=== PATIENT | male | born 1985 | race Caucasian/White ===

== ENCOUNTER → 2022-01-22 11:35 | Outpatient (CLI) | payer MEDICAID, SELFPAY ==
[2022-01-22 13:46] LABS: Basophils # 0.1 K/mm3 (0-0.2); Basophils % 0.8 % (0.1-2.0); Eosinophils # 0.1 K/mm3 (0.0-0.4); Eosinophils % 0.8 % (0.1-12.0); Hemoglobin 14.7 g/dL (14.1-18.0); Lymphocytes # 2.3 K/mm3 (0.7-4.5); Lymphocytes % 37.7 % (10-50); Mean Corpuscular HGB Conc 32.7 g/dL (31.8-35.4); Mean Corpuscular Hemoglobin 29.2 pg (27.0-31.2); Mean Corpuscular Volume 89.3 fl (80-94); Mean Platelet Volume 9.3 fl (7.4-10.4); Monocytes # 0.4 K/mm3 (0.1-1.0); Neutrophils # 3.3 K/mm3 (1.8-7.8); Neutrophils % 53.8 % (37.0-80.0); Platelet Count 274 K/mm3 (142-424); Red Blood Count 5.04 M/mm3 (4.60-6.20)
[2022-01-22 14:05] LABS: Alanine Aminotransferase 26 U/L (12-78); Albumin Level 4.8 g/dl (3.5-5.0); Alkaline Phosphatase 78 U/L (38-126); Aspartate Amino Transferase 26 U/L (17-59); Bilirubin,Total 0.3 mg/dl (0.2-1.3); Blood Urea Nitrogen 16 mg/dl (9-20); Calcium 9.7 mg/dl (8.4-10.2); Carbon Dioxide 27 mmol/L (22.0-30.0); Chloride 96 mmol/L (98-107); Chol/HDL Ratio 4.2 (1-3.5); Cholesterol 199 mg/dl (140-200); Estimated Glomerular Filt Rate 84 ml/min (>60); GFR (African American) 101 ML/MIN (>60); Globulin 2.4 g/dL (1.3-3.2); Glucose 88 mg/dl (74-100); HDL Cholesterol 47 mg/dl (40-60); Sodium 138 mmol/L (136-145); Total Protein,Serum 7.2 g/dl (6.3-8.2); Triglycerides 341 mg/dl (30-150); VLDL Cholesterol 68 mg/dL (0-40)
[2022-01-22 14:22] LABS: 25-OH Vitamin D, Total 38.2 ng/mL (30-100)
[2022-01-22 14:36] LABS: Thyroid Stimulating Hormone 0.56 uIU/mL (0.465-4.68)
== END ==
PROVIDERS: PCP Student in an Organized Health Care Education/Training Program; Visit Provider Student in an Organized Health Care Education/Training Program
DX: Z00.00 Encounter for general adult medical examination without abnormal findings (principal); E78.5 Hyperlipidemia, unspecified; E55.9 Vitamin D deficiency, unspecified; F41.9 Anxiety disorder, unspecified; Z72.0 Tobacco use; Z79.899 Other long term (current) drug therapy
CPT/HCPCS: 80053; 80061; 82306; 84443; 85025

== ENCOUNTER 2022-02-12 00:03 | Emergency (ER) | payer SELFPAY ==
[2022-02-12 00:04] VITALS: BP 113/76; PULSE 87; RESP 19; TEMP 36.9; O2SAT 98; BMI 26.6
[2022-02-12 00:16] VITALS: BMI 26.6
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
[2022-02-12 01:26] VITALS: BP 115/75; PULSE 81; RESP 17; TEMP 36.9; O2SAT 99
== END 2022-02-12 01:35 | disposition home or self-care (01) ==
PROVIDERS: Emergency Provider Emergency Medicine
DX: T23.201A Burn of second degree of right hand, unspecified site, initial encounter (principal); T59.811A Toxic effect of smoke, accidental (unintentional), initial encounter; F17.200 Nicotine dependence, unspecified, uncomplicated; Z79.899 Other long term (current) drug therapy; Z23 Encounter for immunization; Y92.012 Bathroom of single-family (private) house as the place of occurrence of the external cause
CPT/HCPCS: 71046; 90471; 90714; 99284

== ENCOUNTER → 2022-03-15 11:00 | Outpatient (CLI) | payer MEDICAID, SELFPAY | PROVIDERS: PCP Student in an Organized Health Care Education/Training Program; Visit Provider Student in an Organized Health Care Education/Training Program | DX: U07.1 COVID-19 (principal); R53.1 Weakness | CPT/HCPCS: C9803; U0003; U0005 ==

== ENCOUNTER → 2022-08-08 11:00 | Outpatient (CLI) | payer MEDICAID, SELFPAY | PROVIDERS: PCP Emergency Medicine; Visit Provider Emergency Medicine | DX: M54.50 Low back pain, unspecified (principal) | CPT/HCPCS: 87086 ==

== ENCOUNTER → 2022-08-22 13:42 | Outpatient (CLI) | payer MEDICAID, SELFPAY ==
[2022-08-24 11:57] LABS: Rapid Plasma Reagin Ab Titer Non Reactive (NonRea<1:1)
[2022-08-24 22:40] LABS: Neisseria gonorrhoeae, NAA Negative (Negative)
[2022-08-25 06:21] LABS: HIV Screen 4th Generation wRfx Non Reactive (Non Reactive)
== END ==
PROVIDERS: PCP Nurse Practitioner Family; Visit Provider Nurse Practitioner Family
DX: A64 Unspecified sexually transmitted disease (principal); Z11.4 Encounter for screening for human immunodeficiency virus [HIV]
CPT/HCPCS: 86593; 86695; 86703; 86790; 87491; 87591; G0432

== ENCOUNTER 2023-02-28 06:29 | Outpatient (CLI) | payer MEDICAID, SELFPAY ==
[2023-02-28 19:51] LABS: Basophils # 0.1 K/mm3 (0-0.2); Basophils % 0.8 % (0.1-2.0); Eosinophils # 0.1 K/mm3 (0.0-0.4); Eosinophils % 1.1 % (0.1-12.0); Hematocrit 45.9 % (42.0-52.0); Hemoglobin 15.7 g/dL (14.1-18.0); Lymphocytes # 2.2 K/mm3 (0.7-4.5); Lymphocytes % 33.2 % (10-50); Mean Corpuscular HGB Conc 34.2 g/dL (31.8-35.4); Mean Corpuscular Hemoglobin 29.9 pg (27.0-31.2); Mean Corpuscular Volume 87.5 fl (80-94); Mean Platelet Volume 9.5 fl (7.4-10.4); Monocytes # 0.5 K/mm3 (0.1-1.0); Monocytes % 7.8 % (1.7-9.3); Neutrophils # 3.8 K/mm3 (1.8-7.8); Neutrophils % 57.1 % (37.0-80.0); Platelet Count 267 K/mm3 (142-424); Red Blood Count 5.24 M/mm3 (4.60-6.20); Red Cell Distribution Width 13.8 % (11.5-17.5); White Blood Count 6.6 K/mm3 (4.8-10.8)
[2023-02-28 20:06] LABS: Alanine Aminotransferase 64 U/L (12-78); Albumin Level 4.4 g/dl (3.5-5.0); Albumin/Globulin Ratio 1.6 (1.1-1.8); Alkaline Phosphatase 73 U/L (38-126); Anion Gap 10.5 mEq/L (5-15); Aspartate Amino Transferase 39 U/L (17-59); Bilirubin,Total 0.3 mg/dl (0.2-1.3); Blood Urea Nitrogen 12 mg/dl (9-20); Calcium 9.1 mg/dl (8.4-10.2); Carbon Dioxide 27 mmol/L (22.0-30.0); Chloride 103 mmol/L (98-107); Chol/HDL Ratio 7.4 (1-3.5); Cholesterol 268 mg/dl (140-200); Estimated Glomerular Filt Rate 83 ml/min (>60); GFR (African American) 101 ML/MIN (>60); Globulin 2.7 g/dL (1.3-3.2); Glucose 97 mg/dl (74-100); HDL Cholesterol 36 mg/dl (40-60); Potassium 4.5 mmoL/L (3.5-5.1); Sodium 136 mmol/L (136-145); Total Protein,Serum 7.1 g/dl (6.3-8.2)
[2023-02-28 20:26] LABS: Direct LDL Cholesterol 122.88 mg/dL (100-129)
[2023-02-28 20:38] LABS: Amphetamine/Metha Screen,Urine Negative ng/ml (<1000); Barbiturates Screen,Urine Negative ng/ml (<200); Benzodiazepines Screen,Urine Negative ng/ml (<200); Cannabinoid Screen,Urine Positive ng/ml (<50); Cocaine Screen,Urine Negative ng/ml (<300); Methadone Screen,Urine Negative ng/ml (<300); Opiate Screen,Urine Negative ng/ml (<300); Phencyclidine Screen,Urine Negative ng/ml (<25)
[2023-02-28 20:44] LABS: Triglycerides 776 mg/dl (30-150)
[2023-03-09 19:09] LABS: Alprazolam Negative (Cutoff=100); Benzodiazepines Positive ng/mL (Cutoff=100); Clonazepam Positive (.); Clonazepam Confirm 179 ng/mL (Cutoff=100); Flurazepam Negative (Cutoff=100); Lorazepam Negative (Cutoff=100); Midazolam Negative (Cutoff=100); Temazepam Negative (Cutoff=100); Triazolam Negative (Cutoff=100)
== END 2023-02-28 23:59 ==
PROVIDERS: PCP Nurse Practitioner Family; Visit Provider Nurse Practitioner Family
DX: R06.02 Shortness of breath (principal); R07.9 Chest pain, unspecified; R53.83 Other fatigue; F41.9 Anxiety disorder, unspecified; E55.9 Vitamin D deficiency, unspecified; Z79.899 Other long term (current) drug therapy
CPT/HCPCS: 80053; 80061; 80307; 80346; 82306; 84443; 85025

== ENCOUNTER 2023-03-04 10:21 | Outpatient (CLI) | payer MEDICAID, SELFPAY | END 2023-03-04 23:59 | LOC: LAB.DROPOF 03-08 10:21 | PROVIDERS: PCP Nurse Practitioner Family; Visit Provider Nurse Practitioner Family | DX: F41.9 Anxiety disorder, unspecified (principal); Z79.899 Other long term (current) drug therapy | CPT/HCPCS: 80346 ==

== ENCOUNTER 2023-03-22 07:32 | Outpatient (CLI) | payer MEDICAID, SELFPAY ==
--- NOTE | 2023-03-22 | CA_ITS ---
APPROVED REPORT Exam: Pharmacologic Technologist: Mariana Kim, Ht: 5 ft 9 in Wt: 194 lbs BSA: 2.04 m2 HR: 65 bpm BP: 124/72 mmHg Rhythm: NSR Medical History Medical History: Hyperlipidemia Medications: Lexapro,,,,, Atorvastatin,,,,, FeNOfibrate,,,,, Vraylar,,,,, KloNIPIN,,,,, Allergies: No known drug allergies Cardiac Risk Factors: Hyperlipidemia Stress Test Details Test: LEXISCAN HR Resting HR: 62 bpm Max Heart Rate (APMHR): 181 bpm Max HR Achieved: 88 bpm Target HR (85% APMHR): 154 bpm % of APMHR: 49 Recovery HR: 78 bpm BP Resting BP: 124/72 mmHg Max BP: 145/80 mmHg Recovery BP: 119.0/81.0 mmHg ECG Resting ECG: NSR Stress ECG: No significant ST changes Arrhythmia: None Clinical Exercise duration: 04:03 min Highest Stage Achieved: Stress ECG Conclusion PT HAD MILD SOA AND HEAD DISCOMFORT MILD CHEST TIGHTNESS NO SIGNIFICANT CHANGES UNREMARKABLE LEXISCAN STRESS MYOVIEW IMAGES REPORTED SEPARATELY Test Summary REST 02:58 . . 62 . 124/ 72 . . Stage 1 01:00 . . 85 . . . . Stage 2 01:00 . . 83 . 145/ 80 . . Stage 3 01:00 . . 75 . 122/ 73 . . Stage 4 01:00 . . 71 . 126/ 80 . . Stage 4 01:03 . . 71 . 126/ 80 . Stop exercise at 04:03 RECOVERY 01:00 . . 75 . . . . RECOVERY 02:00 . . 68 . 124/ 77 . . RECOVERY 03:00 . . 78 . 119/ 81 . . RECOVERY 03:17 . . 72 . 119/ 81 . . Electronically signed by : Paz Tobar MD 03/25/2023 11:34:59
--- NOTE | 2023-03-22 07:33 | NM_ITS ---
APPROVED REPORT Exam: Nuclear Stress Test Indication: chest pain..fatigue Patient Location: Outpatient Stress Tech: Mariana Kim [place] Tech:ADELINE Hernandez RT(R)(N) Ht: 5 ft 9 in Wt: 196 lbs HR: 62 bpm BP: 124/72 mmHg BSA: 2.05 m2 Rhythm: NSR TID: 1.19 BMI: 28.9 History: chest pain..fatigue Procedure: Patient received 0.4 mg of intravenous Lexiscan, resting heart rate 62 bpm, resting blood pressure 124/72 mmHg, with Lexiscan maximum heart rate achieved was 88 bpm which is 85 % of the maximum predicted heart rate and blood pressure was 145/80 mmHg. With Lexiscan, patient denied any complaint of chest pain. Cardiac Stress and Resting SPECT Images: Cardiac Stress and Resting SPECT images were obtained using technetium 99m Myoview 30.5 mCi stress and 9.90 mCi at rest. Technically difficult study due to significant radiotracer uptake in the GI tract, with reduced counts in the cardiac myocardial wall. This may affect the diagnostic interpretation of the study findings. There is no definite evidence of fixed or reversible perfusion defects. Gated imaging demonstrates mild reduction in global and regional LV systolic function. LVEF is calculated at 41%. Conclusion: Technically difficult study due to significant radiotracer uptake in the GI tract, with reduced counts in the cardiac myocardial wall. This may affect the diagnostic interpretation of the study findings. There is no definite evidence of fixed or reversible perfusion defects. Gated imaging demonstrates mild reduction in global and regional LV systolic function. LVEF is calculated at 41%. In the setting of reduced cardiac radiotracer uptake, this may be considered a nondiagnostic stress test. Evaluation for ischemia with alternative modalities is recommended, if clinically indicated. Electronically signed by : Paz Tobar MD 03/25/2023 11:37:51
[2023-03-22] MEDS: ISOTOPE MYOVIEW (PER STUDY) 1 DOSE IV (09:19)
[2023-03-22] MEDS: REGADENOSON 0.4MG/5ML SYRINGE 0.400000000000000022 MG IV (09:19)
[2023-03-22] MEDS: SODIUM CHLORIDE 0.9% 10ML SYR (RAD ONLY) 10 ML IV ×2 (09:19→09:20)
--- NOTE | 2023-03-22 09:24 | CA_ITS ---
APPROVED REPORT EXAM: Comprehensive 2D, Doppler, and color-flow Echocardiogram [employer]: Ericka Mejia, RCS, RVS Ht: 5 ft 9 in Wt: 194lbs BSA: 2.04 BP: 114/77 mmHg Indications: CP,HTN, Fatigue, Smoker 2D Dimensions Left Atrium 2.84 cm M: 3.0 - 4.0 LA Volume 41.20 mL LA Volume Index [id number] mL/m2 (M/F) 16-34 M-Mode Dimensions RVDd 3.22 cm (0.9-2.6) LA Diam 3.23 cm (1.9-4.0) LVDd 4.90 cm (3.5-5.7) LVDs 3.68 cm (3.5-5.7) IVSd 0.89 cm (0.6-1.1) PWd 0.89 cm (0.6-1.1) EF (Teich) 49.10% EPSs 1.18 cm FS 24.90% EDV (Teich) 112.80 mL TAPSE 1.86 (<1.7) ESV (Teich) 57.40 mL LV Diastology E Decel Time 200 (160-240 msec) E/A Ratio 1.44 MED A' 12.80 cm/s LAT A' 6.70 cm/s Aortic Valve NILDA Index 1.21 cm2/m2 AoV Peak Sher. 114.0 (50-130 cm/s) AO Peak GR. 5.20 mmHg AO Mean GR. 2.60 (<5 mmHg) AO VTI 23.8 (18-25 cm) NILDA (VTI) 2.52 (2.5-4.5 cm2) Mitral Valve MV A Velocity 46.0 (40-130 cm/s) E/A Ratio 1.44 Tricuspid Valve TR P. Velocity 182.00 cm/s RAP Estimate 10.00 mmHg RVSP 23.20 mmHg Left Ventricle The left ventricle is normal size. The left ventricular systolic function is low-normal. There is normal left ventricular wall thickness. There is borderline global hypokinesis present. The left ventricular diastolic function is normal. LVEF is 50%. Right Ventricle The right ventricle is normal size. The right ventricular systolic function is normal. Atria The left atrium size is normal. The right atrium size is normal. There is no Doppler evidence of interatrial shunt. Aortic Valve The aortic valve opens well. There is no aortic valvular stenosis. No aortic regurgitation is present. Mitral Valve The mitral valve is normal in structure. No evidence of mitral valve stenosis. There is no mitral valve regurgitation noted. Tricuspid Valve The tricuspid valve leaflets are thin and pliable. Trace tricuspid regurgitation. There is insufficient TR jet to estimate RVSP. Pulmonic Valve The pulmonary valve is normal in structure. Trace pulmonic regurgitation. Great Vessels The aortic root is normal in size. The ascending aorta is not well visualized. IVC is normal in size and collapses >50% with inspiration. Pericardium There is no pericardial effusion. Other Information Study Quality: Adequate Conclusion Low-normal LV systolic function (LVEF 50%). No significant valvular stenosis or regurgitation. In the setting of borderline global hypokinesis and low-normal LVEF=50%, further evaluation to rule out cardiomyopathy is recommended with cardiac MRI (cardiomyopathy protocol). Electronically signed by : Paz Tobar MD 03/26/2023 17:23:32
== END 2023-03-22 23:59 ==
LOC: RAD 07:33
PROVIDERS: PCP Nurse Practitioner Family; Visit Provider Physician Assistant
DX: R06.02 Shortness of breath (principal); R07.9 Chest pain, unspecified; R53.83 Other fatigue; Z82.49 Family history of ischemic heart disease and other diseases of the circulatory system
CPT/HCPCS: 78452; 93017; 93018; 93306; A9502; J2785

== ENCOUNTER 2023-04-09 07:35 | Outpatient (CLI) | payer MEDICAID, SELFPAY ==
--- NOTE | 2023-04-09 07:35 | CT_ITS ---
APPROVED REPORT Hospice Clinical Supervisor: CLINICAL INDICATION Chest Pain TECHNIQUE Image Acquisition: A 128 slice MDCT scanner ([employer] View) was used for data acquisition. A noncontrast coronary calcium scan was performed. A CT attenuation threshold of 130 Hounsfield units (HU) was used for the detection of calcium in contiguous voxels of 1 sq mm in area to be counted as individual lesions. Bolus tracking in the ascending aorta with a threshold of 180 HU was performed. Immediately afterwards, ECG synchronized cardiac CT was then performed from the cardiac base to apex using retrospective gating with ECG tube current modulation. A total of 85 mL of Isovue 370 mg/mL contrast medium was administered at 5 mL/sec followed by a saline flush using a biphasic injection protocol. A tube voltage of 120 KVp was used. The patient received the following medications prior to the cardiac CT. 75 mg of oral metoprolol 15 mg of oral ivabradine 0.8 mg of sublingual nitroglycerin The average heart rate at the time of acquisition was 51 bpm and regular. Image Reconstruction Transaxial images were reconstructed at 0.67 mm slide thickness. Data was reviewed interactively on an advanced workstation capable of 2 and 3-dimensional displays in all conventional reconstruction formats, including multiplanar reformations, maximum intensity projections, curved multiplanar reformations, and volume rendered reconstructions. When applicable, selected routine images describing the relevant coronary anatomy and pathology were saved and sent to PACS. Complications None Technical Quality Overall image quality was good. Coronary artery opacification was adequate. Total DLP (Dose-Length Product) is 1410.8 mGy-cm. The reported value represents the total of one or more individual components during the CT acquisition of this date and at this time, and as such, the same value may appear in more than one CT report depending on the interpreting/reporting physicians. COMPARISON None FINDINGS CT Coronary Calcium Scoring LMA (Left Main Artery) = 0 LAD (Left Anterior Descending) = 0 LCX (Left Coronary Circumflex) = 0 RCA (Right Coronary Artery) = 0 Total Calcium Score = 0 using the AJ-130 method. The interpretation of the calcium heart score is based on the following continuum*: 0 = no calcified plaque detected (risk of coronary artery disease is very low ??? less than 5%) 1-10 = calcium detected in extremely minimal levels (risk of coronary diseases is still low ??? less than 10%) 11-100 = mild levels of plaque detected with certainty (mild or minimal narrowing of heart arteries is likely) 101-400 = definite,at least moderate levels of plaque detected (relatively high risk of a heart attack within 3-5 years) >401-999 = extensive levels of plaque detected (high risk of heart attack, high levels of vascular disease are present, high likelihood of at least one significant coronary narrowing) *The calcium heart score quantifies the burden of coronary calcification/plaque in the coronary arteries. The calcium heart score is not able to evaluate the presence or burden of non-calcified (i.e. soft) plaque. There is no identifiable calcification in the aortic valve, mitral annulus or mitral valve, pericardium, or myocardium. Coronary CT Angiography The coronary arterial system is right dominant. Quantitative Stenosis Grading: Left Main (LM): The left main originates normally from the left sinus of Valsalva. The LM trifurcates into the left anterior descending artery, ramus intermedius, and left circumflex artery. The LM is patent with no evidence of atherosclerosis. Left Anterior Descending (LAD) and Diagonal Branches: The LAD gives off 2 diagonal branches. The LAD and its branches are patent with no evidence of atherosclerosis. There is no evidence of LAD bridge. Ramus-intermedius (RI): The RI is patent. Left Circumflex (LCX) and Obtuse Marginals (OM): The LCX gives off 1 Obtuse Marginal (OM) branch. The LCX and its branches are patent with no evidence of atherosclerosis. Right Coronary Artery (RCA): The RCA originates normally from the right sinus of Valsalva. The RCA gives off a posterior descending artery (PDA) and posterolateral (PL) branches. The RCA and its branches are patent with no evidence of atherosclerosis. Non-Coronary Cardiac Findings: Analysis of the left ventricular (LV) structure and function was performed after 3-D reconstruction of the LV from axial images, with user-corrected automatic contouring for assessment of LV volumes and user-defined reconstruction from oblique planes for measurement of 3-D cardiac structure and function. LVEDV: 175 mL LVESV: 99 mL SV: 78 mL LVEF: 43% -There is mild reduction in LV systolic function (LVEF 43%). -There is no left atrial appendage filling defect. Two right pulmonary veins and two left pulmonary veins drain normally into the left atrium. -No pericardial thickening or calcification. -Central and branch pulmonary arteries in the [id number] are unremarkable. -Thoracic aorta within the visualized thoracic aortic-branches in the [id number] is unremarkable. Extracardiac Structures No significant extra-cardiac findings. Note, however, that this study is focused on the cardiac findings. IMPRESSION -Absence of coronary calcification with an Agatston score = 0 using the AJ-130 method. -No evidence of significant flow-limiting atherosclerosis of the coronary arteries. -No evidence of coronary anomalies. -CAD-RADS 0. Management recommendations per ACC/AHA guidelines*, as clinically appropriate. -Mild reduction in LV systolic function (LVEF 43%). Correlation with TTE is recommended, and if indicated, further evaluation for etiologies of non-ischemic cardiomyopathy is recommended with cardiac MRI (cardiomyopathy protocol). *Recommendations: CAD RADS 0: Reassurance. Consider non-atherosclerotic causes of chest pain. CAD RADS 1: Consider non-atherosclerotic causes of chest pain. Consider preventive therapy and risk factor modification. CAD RADS 2: Consider non-atherosclerotic causes of chest pain. Consider preventive therapy and risk factor modification, particularly for patients with nonobstructive plaque in multiple segments. CAD RADS 3: Consider further functional testing. Consider symptom-guided anti-ischemic and preventive pharmacotherapy as well as risk factor modification per published guideline statements. CAD RADS 4A: Consider further functional testing or invasive coronary angiography with revascularization per published guideline statements. Consider symptom-guided anti-ischemic and preventive pharmacotherapy as well as risk factor modification per published guideline statements. CAD RADS 4B: Invasive coronary angiography recommended with revascularization per published guideline statements. Consider symptom-guided anti-ischemic and preventive pharmacotherapy as well as risk factor modification per published guideline statements. CAD RADS 5: Consider invasive angiography and/or viability assessment with revascularization per published guideline statements. Consider symptom-guided anti-ischemic and preventive pharmacotherapy as well as risk factor modification per published guideline statements. CRITICAL RESULT None COMMUNICATION Per this written report The coronary and cardiac findings of this CCTA were reviewed, reported, and signed by Linus Tobar MD (Investment Officer) Conclusion Electronically signed by : Paz Tobar MD 04/10/2023 13:11:48
[2023-04-09 07:50] VITALS: BMI 27.3
[2023-04-09 07:59] VITALS: BP 118/81; PULSE 75; RESP 18; O2SAT 99
[2023-04-09] MEDS: IVABRADINE HCL 7.5MG TABLET *IVABRADINE+METOPROLOL REGIMINE 15 MG PO (08:00)
[2023-04-09] MEDS: METOPROLOL TARTRATE 50MG TABLET *IVABRADINE+METOPROLOL REGIMINE 75 MG PO (08:00)
[2023-04-09 08:05] LABS: Chloride 104 mmol/L (98-107); Potassium 4.1 mmoL/L (3.5-5.1); Sodium 140 mmol/L (136-145)
[2023-04-09 08:08] LABS: Anion Gap 10.1 mEq/L (5-15); Blood Urea Nitrogen 13 mg/dl (9-20); Calcium 9.2 mg/dl (8.4-10.2); Carbon Dioxide 30 mmol/L (22.0-30.0); Creatinine Clearance Estimated 107 mL/min (50-200); Estimated Glomerular Filt Rate 75 ml/min (>60); GFR (African American) 90 ML/MIN (>60); Glucose 97 mg/dl (74-100)
[2023-04-09 08:45] VITALS: BP 120/78; PULSE 62; RESP 18; O2SAT 97
[2023-04-09] MEDS: NITROGLYCERIN 0.4MG SL TABLET 0.800000000000000044 MG SL (08:45)
[2023-04-09 08:50] VITALS: BP 104/69; PULSE 58; RESP 18; O2SAT 97
[2023-04-09 08:55] VITALS: BP 94/55; PULSE 54; RESP 18; O2SAT 96
[2023-04-09 09:00] VITALS: BP 102/57; PULSE 65; RESP 18; O2SAT 96
[2023-04-09] MEDS: SODIUM CHLORIDE 0.9% 10ML SYR (RAD ONLY) 10 ML IV (09:07)
[2023-04-09] MEDS: 0.9 % SODIUM CHLORIDE 50 ML VIAL IV (09:07)
[2023-04-09] MEDS: IOPAMIDOL-370 (76%);100ML BOTTLE 85 ML IV (09:07)
== END 2023-04-09 09:00 | disposition home or self-care (01) ==
PROVIDERS: PCP Nurse Practitioner Family; Visit Provider Physician Assistant
DX: R06.02 Shortness of breath (principal); R07.9 Chest pain, unspecified; R53.83 Other fatigue; Z82.49 Family history of ischemic heart disease and other diseases of the circulatory system
CPT/HCPCS: 75571; 75574; 80048; Q9967

== ENCOUNTER 2024-08-05 10:30 | Emergency (ER) | payer SELFPAY ==
[2024-08-05] VITALS (10 sets, daily range): BP systolic 119–145; BP diastolic 81–97; PULSE 67–78; RESP 14–18; TEMP 36.6–37; O2SAT 96–100; BMI 27.3
--- NOTE | 2024-08-05 10:31 | XR_ITS ---
FINAL REPORT CLINICAL HISTORY: Chest pain, dyspnea COMPARISON: None FINDINGS: The heart size is normal. The mediastinum is normal. There is no focal infiltrate or edema. There are no pleural effusions. There is no pneumothorax. There is no osseous abnormality. IMPRESSION: No acute cardiopulmonary process Reviewed, Interpreted and Dictated by Mehdi Rueda MD Transcribed by Stephanie Mahmood Authenticated and [facility]
--- NOTE | 2024-08-05 10:32 | ECG_ITS ---
APPROVED REPORT Exam: Resting ECG HR:69 bpm ECG Measurements Heart Rate 69 AXES IN 183 P 71 QRSd 90 QRS 45 QT 361 T 28 QTc 380 Conclusion SINUS RHYTHM NORMAL ECG UNCONFIRMED REPORT Electronically signed by : DEE DUNLAP, 08/06/2024 01:09:57
--- NOTE | 2024-08-05 10:37 | PC.NURSE ---
FSBS 92 at this time
--- NOTE | 2024-08-05 10:42 | ED_ITS ---
<Statement entered by Lindy Rodriguez MD - 08/05/24 15:25> I was consulted by the MADELIN, and we discussed the complexity of the problems being addressed. I approved the treatment and management plan for this patient's care in the emergency department, thus performing a substantive portion of the medical decision making. Lindy Rodriguez MD, ELDON, FACEP Discharge Plan Disposition Patient Disposition: Home, Self-Care Condition: Good Prescriptions Prescriptions: No Action No Known Home Medications Referrals Follow up/Referrals: Provider,Referral, MD [Primary Care Provider, Medical] - See instructions Activity Restrictions/Add. Instructions Additional Instructions/Restrictions: Please follow-up with your PCP, I recommend restarting your cholesterol medication, please return to the emergency department any worsening signs or symptoms, any further episodes of chest pain shortness of breath. Clinical Impressions Clinical Impression: Chest pain Instructions Patient Instructions: DI for Atypical Chest Pain Print Language Print Language: [place] Citizen Discharge ED Provider: Lindy Rodriguez General Adult HPI General Chief complaint: Chest Pain Stated complaint: Chest Pain Time Seen by Provider: 08/05/24 10:33 Mode of Arrival: Ambulatory Source of Information: Patient Limitations: No Limitations History of Present Illness HPI narrative: 38-year-old male presents the emergency department accompanied by his significant other for episode of chest pain that started around 1 hour / 1.5 hours ago, it is substernal nonradiating, it started with a headache, lightheadedness, diaphoresis, now he states he is having nausea, and some shortness of breath, it was a 6 out of 10 at maximal, patient was working at [employer] , when it hit him, he has family history of coronary artery disease, and data deficient history of what sounds like an ASD, patient tells me they told me I had a hole in my heart once , states he has had remote stress test for which he does not know the results of. He denies any fever chills cough congestion, sore throat, no recent sick contacts, denies any real abdominal pain, constipation diarrhea, denies any vomiting, denies any urinary type symptomatology, patient also has remote history of hyperlipidemia, was previously on what sounds like statin medication, however due to insurance , issues he is no longer taking this medication, he is a former smoker, currently vapes , denies any alcohol or other drug use. Triage vitals are unremarkable. Onset (ago): hour(s) Related Data Home Medications ?Medication ?Instructions ?Recorded ?Confirmed No Known Home Medications 04/30/2408/19 Allergies Allergy/AdvReac Type Severity Reaction Status Date / Time No Known Allergies Allergy Verified 04/30/24 18:02 [facility] Disclaimer: The information contained in this section may have been updated after the patient was seen, as this information can be updated by other users. Medical History (Updated 08/05/24 @ 14:31 by TIFFANI Elizondo) Viral syndrome Interatrial cardiac shunt HLD (hyperlipidemia) Anxiety Surgical History Hx of appendectomy Family History Other Family history of pulmonary hypertension Social History Smoking Status: Current every day smoker alcohol intake: current current occupational status: employed Travel in the last 8 weeks?: None Have you lived/traveled outside [place] in past 30 days?: No Contact w/someone who lives/traveled outside [place] past 30 days?: No Exposure to someone with infectious disease in past 14 days?: No Do you have a fever (greater than 100.4 F or 38 C)?: No Have you tested positive for COVID-19?: No Exposed to someone with COVID-19 in past 14 days?: No Do you have a sore throat?: No Do you have a cough?: No Do you have any weakness?: No Do you have any diarrhea?: No Are you experiencing any unusual bleeding?: No Do you have any muscle aches/pain?: No Do you have any abdominal pain?: No Are you experiencing loss of taste or smell?: No Other Medical History Have you received the Flu Vaccine for this season: No Have you received the Pneumonia Vaccine: No ROS Obtained: Yes All systems reviewed & no additional complaints except as documented Physical Exam General General appearance: alert and in no apparent distress Head Head exam: atraumatic and normocephalic Eye Eye exam: Present normal appearance, PERRL and EOMI Neck Neck exam: Present full ROM; Absent meningismus Chest Chest inspection: Present normal inspection Respiratory Respiratory exam: Absent respiratory distress, wheezes, stridor, accessory muscle use or prolonged expiratory phase Cardiovascular Cardiovascular exam: Present normal rhythm, diastolic murmur and other (Pulses equal and symmetric in bilateral upper and lower extremities, murmur is present upon auscultation) Abdominal Exam Abdominal exam: Absent distention Extremities Exam Extremities exam: Absent edema Neurological Exam Neurological exam: Present alert Psychiatric Psychiatric exam: Present normal affect Skin Skin exam: Present warm and dry Medical Decision Making Medical Records Medical records reviewed: Yes I reviewed the patient's medical records. Screening: Per USPSTF and CDC recommendations, given the prevalence of disease in our region, it is our hospital?s policy to screen for HIV and viral Hepatitis for all patients aged 18 and over and those with ongoing risk factors. [place] Inquiry Pt receiving controlled substance: Yes [place] was queried for this patient: No Reason not queried -: Emergent pt cond-no time Risks and benefits of using a controlled substance: were discussed with pt by me Vital Signs: 08/05/24 10:36 08/05/24 11:00 08/05/24 11:30 Temperature 97.8 F Temperature Source Oral Pulse Rate 73 70 Pulse Rate [Right Radial] 73 Respiratory Rate 15 15 14 Blood Pressure 123/81 128/88 Blood Pressure [Right Arm] 145/97 H Blood Pressure Mean [Right Arm] 113 Blood Pressure Source [Right Arm] Automatic Cuff Blood Pressure Position [Right Arm] Supine 02 Sat by Pulse Oximetry 100 96 100 Oxygen Delivery Method Room Air 08/05/24 12:00 08/05/24 12:30 08/05/24 13:00 Temperature Temperature Source Pulse Rate 70 68 70 Pulse Rate [Right Radial] Respiratory Rate 17 14 18 Blood Pressure 119/95 H 121/87 125/86 Blood Pressure [Right Arm] Blood Pressure Mean [Right Arm] Blood Pressure Source [Right Arm] Blood Pressure Position [Right Arm] 02 Sat by Pulse Oximetry 98 99 98 Oxygen Delivery Method 08/05/24 13:30 08/05/24 14:00 Temperature Temperature Source Pulse Rate 70 67 Pulse Rate [Right Radial] Respiratory Rate 16 14 Blood Pressure 128/95 H 125/92 H Blood Pressure [Right Arm] Blood Pressure Mean [Right Arm] Blood Pressure Source [Right Arm] Blood Pressure Position [Right Arm] 02 Sat by Pulse Oximetry 100 100 Oxygen Delivery Method Lab Data Lab results reviewed: Yes I reviewed the patient's lab results. Lab Results 08/05/24 10:37: WBC 5.9, RBC 5.14, Hgb 15.2, Hct 45.0, MCV 87.5, MCH 29.6, MCHC 33.8, RDW 13.4, Plt Count 264, MPV 9.8, Neut % (Auto) 58.6, Lymph % (Auto) 29.5, [place] % (Auto) 9.6 H, Eos % (Auto) 0.8, Baso % (Auto) 0.8, Neut # (Auto) 3.5, Lymph # (Auto) 1.8, [place] # (Auto) 0.6, Eos # (Auto) 0.1, Baso # (Auto) 0.1, PT 10.2, INR 0.91, D-Dimer 0.35, Sodium 136, Potassium 4.5, Chloride 105, Carbon Dioxide 29, Anion Gap 6.5, BUN 12, Creatinine 1.00, Estimated Creat Clear 117, Estimated GFR 83, Est GFR ( Amer) 100, Glucose 85, Calcium 9.6, Magnesium 1.9, Total Bilirubin 0.2, AST 41, ALT 53, Alkaline Phosphatase 68, Troponin I < 0.01, NT-Pro-B Natriuret Pep < 20.0, Total Protein 7.7, Albumin 4.6, Globulin 3.1, Albumin/Globulin Ratio 1.5, HCV Ab ADIS w/Rflx PCR Qn Negative 08/05/24 13:33: Troponin I < 0.01 08/05/24 10:37 08/05/24 10:37 Orders (Tests/Meds): ED MEDICATIONS Discontinued Medications Generic Name Dose Route Start Last Admin Trade Name Edyq PRN Reason Stop Dose Admin Morphine Sulfate 4 mg 08/05/24 10:39 08/05/24 10:48 Morphine 4mg/Ml Syringe IV 08/05/24 10:40 4 mg ONCE ONE Administration Nitroglycerin 0.4 mg 08/05/24 10:38 08/05/24 10:47 Nitroglycerin 0.4mg Sl Tablet SL 08/05/24 10:39 0.4 mg ONCE ONE Administration Ondansetron HCl 4 mg 08/05/24 10:40 08/05/24 10:48 Ondansetron 4mg/2ml Vial IV 08/05/24 10:41 4 mg ONCE ONE Administration ORDERS Category Date Time Status XR chest portable Stat Exams 08/05/24 10:31 Completed Complete Blood Count Auto Diff Stat Lab 08/05/24 10:37 Completed Comprehensive Metabolic Panel Stat Lab 08/05/24 10:37 Completed D-Dimer Stat Lab 08/05/24 10:37 Completed HIV Combo Stat Lab 08/05/24 10:37 Received Hepatitis C Ab Qual. W/ RFX Stat Lab 08/05/24 10:37 Completed Magnesium Stat Lab 08/05/24 10:37 Completed NT Pro Brain Natriuretic Pep. Stat Lab 08/05/24 10:37 Completed PT INR [Prothrombin Time INR] Stat Lab 08/05/24 10:37 Completed Troponin I Q3H Lab 08/05/24 13:33 Completed Troponin I Q3H Lab 08/05/24 16:45 Ordered Troponin I Stat Lab 08/05/24 10:37 Completed Medical Decision Narrative: 38-year-old male presents to the emergency department with chest pain, differential diagnose include but not limited to, ACS, cardiac arrhythmia, electro disturbance, PE, pneumonia, pneumothorax, costochondritis, panic attack, gastritis, among others. I discussed patient case with attending physician Dr. Rodriguez. Will obtain basic laboratory studies, D-dimer magnesium level proBNP PT/INR, troponin, chest x-ray, EKG, will give 4 mg IV Zofran 4 mg IV morphine and 0.4 mg sublingual nitroglycerin for pain. CBC unremarkable Initial troponin is within normal limits at less than 0.01, proBNP within normal limits, otherwise unremarkable CMP. D-dimer 0.35, negative thus ruling out VTE/PE. Coags within normal limits. I reviewed and independently interpreted the patient's chest x-ray along with corresponding radiologic report, no acute cardiopulmonary process. Repeat troponin is less than 0.01. Heart score of 1. Reexamination of the patient at approximately 2:15 PM, patient states that he is currently chest pain-free, patient has remained hemodynamically stable throughout his time in the emergency department, patient is cleared to be discharged home to self-care, with negative EKG x 2 negative troponin x 2, and chest pain-free, patient wanted to follow-up with PCP, recommend starting high- dose statin therapy for hyperlipidemia which patient was once on, patient voiced understanding and will follow-up PCP for this. Patient and family given strict ED return precautions. Critical Care Critical Care Time Critical Care Time: No
[2024-08-05 10:43] LABS: Basophils # 0.1 K/mm3 (0-0.2); Basophils % 0.8 % (0.1-2.0); Eosinophils # 0.1 Kmm3 (0.0-0.4); Eosinophils % 0.8 % (0.1-12.0); Hemoglobin 15.2 g/dL (14.1-18.0); Immature Granulocytes # 0.04 10^3uL; Immature Granulocytes % 0.7 %; Lymphocytes # 1.8 K/mm3 (0.7-4.5); Lymphocytes % 29.5 % (10-50); Mean Corpuscular HGB Conc 33.8 g/dL (31.8-35.4); Mean Corpuscular Hemoglobin 29.6 pg (27.0-31.2); Mean Corpuscular Volume 87.5 fl (80-94); Mean Platelet Volume 9.8 fl (7.4-10.4); Monocytes # 0.6 K/mm3 (0.1-1.0); Monocytes % 9.6 % (1.7-9.3); Neutrophils # 3.5 K/mm3 (1.8-7.8); Neutrophils % 58.6 % (37.0-80.0); Nucleated Red Blood Cells # 0 10^3/uL; Nucleated Red Blood Cells % 0 %; Platelet Count 264 K/mm3 (142-424); Red Blood Count 5.14 M/mm3 (4.60-6.20); Red Cell Distribution Width 13.4 % (11.5-17.5); Red Cell Distribution Width-SD 42.9 fL; White Blood Count 5.9 K/mm3 (4.8-10.8)
[2024-08-05] MEDS: NITROGLYCERIN 0.4MG SL TABLET 0.4 MG SL (10:47)
[2024-08-05] MEDS: MORPHINE 4MG/ML SYRINGE 4 MG IV (10:48)
[2024-08-05] MEDS: ONDANSETRON 4MG/2ML VIAL 4 MG IV (10:48)
[2024-08-05 10:49] LABS: Albumin Level 4.6 g/dl (3.5-5.0); Chloride 105 mmol/L (98-107); Potassium 4.5 mmoL/L (3.5-5.1); Sodium 136 mmol/L (136-145)
[2024-08-05 10:52] LABS: Alanine Aminotransferase 53 U/L (12-78); Albumin/Globulin Ratio 1.5 (1.1-1.8); Alkaline Phosphatase 68 U/L (38-126); Anion Gap 6.5 mEq/L (5-15); Aspartate Amino Transferase 41 U/L (17-59); Bilirubin,Total 0.2 mg/dl (0.2-1.3); Blood Urea Nitrogen 12 mg/dl (9-20); Calcium 9.6 mg/dl (8.4-10.2); Carbon Dioxide 29 mmol/L (22.0-30.0); Creatinine Clearance Estimated 117 mL/min (50-200); Estimated Glomerular Filt Rate 83 ml/min (>60); GFR (African American) 100 ML/MIN (>60); Globulin 3.1 g/dL (1.3-3.2); Glucose 85 mg/dl (74-100); Magnesium 1.9 mg/dl (1.6-2.3); Total Protein,Serum 7.7 g/dl (6.3-8.2)
[2024-08-05 10:56] LABS: INR 0.91 (0.9-1.1); Prothrombin Time 10.2 seconds (10.1-12.5)
[2024-08-05 11:02] LABS: NT Pro Brain Natriuretic Pep. < 20.0 pg/mL (0-125)
[2024-08-05 11:09] LABS: Troponin I < 0.01 ng/ml (0.00-0.034)
[2024-08-05 11:14] LABS: D-Dimer 0.35 ug/mL (0.0-0.5)
[2024-08-05 11:55] LABS: Hepatitis C Ab Qual. W/ RFX NEGATIVE (Negative)
[2024-08-05 14:06] LABS: Troponin I < 0.01 ng/ml (0.00-0.034)
[2024-08-06 04:24] LABS: HIV Combo NEGATIVE (Negative)
== END 2024-08-05 14:50 | disposition home or self-care (01) ==
PROVIDERS: Physician Assistant; Emergency Provider Student in an Organized Health Care Education/Training Program
DX: R07.9 Chest pain, unspecified (principal); F17.210 Nicotine dependence, cigarettes, uncomplicated; Z11.59 Encounter for screening for other viral diseases; Z11.4 Encounter for screening for human immunodeficiency virus [HIV]
CPT/HCPCS: 71045; 80053; 80074; 83735; 83880; 84484; 85025; 85378; 85610; 87389; 93005; 96374; 96375; 99285; J2270; J2405